=== PATIENT | female | born 2000 | race Two or more races ===

== ENCOUNTER 2021-04-22 23:32 | Observation (INO) | payer SELFPAY ==
[~2021-04-22] VITALS: Ht 157.5 cm; Wt 71.0 kg
[2021-04-23] MEDS ORDERED: IV RINGERS,LACTATED 1000ML 1,000 ML IV PRN (00:15)
[2021-04-23 00:17] LABS: BILIRUBIN,URINE NEGATIVE (NEG); CLARITY,URINE CLEAR; COLOR,URINE YELLOW; NITRITE,URINE NEGATIVE (NEG); PROTEIN,URINE NEGATIVE (NEG-TRACE); UROBILINOGEN,URINE 0.2 mg/dL (0.2 mg/dL)
[2021-04-23 00:28] LABS: RBC,URINE 0 /HPF (0-2)
[2021-04-23 00:29] LABS: BACTERIA,URINE FEW /HPF (0-FEW)
== END 2021-04-23 01:40 | disposition home or self-care (01) ==
LOC: 3 SO LND 23:32
PROVIDERS: ADMIT Obstetrics & Gynecology; ATTEND Obstetrics & Gynecology
DX: O26.893 Other specified pregnancy related conditions, third trimester (principal); N89.8 Other specified noninflammatory disorders of vagina; R10.9 Unspecified abdominal pain; O62.9 Abnormality of forces of labor, unspecified; Z3A.00 Weeks of gestation of pregnancy not specified
CPT/HCPCS: 59025; 81001; 87077; 87086; G0378; G0379